=== PATIENT | male | born 1945 | race Caucasian/White ===

== ENCOUNTER → 2018-01-03 | Outpatient (CLI) | payer MEDICARE, OTHER ==
[~2018-01-03] MED LIST: ASPI-1471 PO; ASPI81TA94 PO; ATOR20TA22 PO; AZIT-1 PO; CEPH250C37 PO; DOCU-202 PO; FLU45SYR25 IM ONLY; FLU60SYR30 IM ONLY; FLU60VIA21 IM ONLY; HYDR-6045 RC; LAN30PT PO; LANS15CA32 PO; MULT-885 PO; PNEU0.5D3 IM; TADA5TAB7 PO; VALS160T20 PO; VALS160T22 PO; WARF5TAB23 PO
--- NOTE | 2018-01-03 11:21 | EKG ---
FACILITY: [facility] - [place] PATIENT NAME: ANAND MARCIAL : [id number] MR: [id number] V: [id number] EXAM DATE: ORDERING PHYSICIAN: ZAKI PAGE TECHNOLOGIST: ECTOR Test Reason : IRREGULAR HR Blood Pressure : / mmHG Vent. Rate : 095 BPM Atrial Rate : 208 BPM P-R Int : 000 ms QRS Dur : 098 ms QT Int : 352 ms P-R-T Axes : 000 -20 096 degrees QTc Int : 442 ms Atrial fibrillation with premature ventricular or aberrantly conducted complexes Low voltage QRS Abnormal ECG When compared with ECG of 11-APR-2013 15:08, Atrial fibrillation has replaced Sinus rhythm Nonspecific T wave abnormality now evident in Inferior leads Nonspecific T wave abnormality, worse in Lateral leads Referred By: KAYLEE Confirmed By:
== END ==
LOC: LAB 10:35
PROVIDERS: ATTEND Internal Medicine
DX: Z02.9 Encounter for administrative examinations, unspecified (principal)

== ENCOUNTER → 2018-01-06 | Outpatient (CLI) | payer MEDICARE, OTHER ==
--- NOTE | 2018-01-09 19:31 | RADIOLOGY IMAGING REPORT ---
FACILITY: [facility] - [place] PATIENT NAME: ANAND MARCIAL : [id number] MR: [id number] V: [id number] EXAM DATE: [id number] ORDERING PHYSICIAN: BOBY PAGE TECHNOLOGIST: Boby Santos EXAMINATION:TWO-DIMENSIONAL ECHOCARDIOGRAPH REASON:ATRIAL FIBRILLATION 2D Measurements (normal values in centimeters) LV endLV endRV endVent.LV PostAorticLeftPercent DiastolicSystolicDiastolicSeptumWallRootAtriumShortening (3.5-5.7)(0.9-2.6)(0.6-1.1)(0.6-1.1)(2.0-3.7)(1.9-4.0)(25-35%) [id number]% STROKE VOLUME: 58ml ESTIMATED EJECTION FRACTION: 53% PARASTERNAL LONG AXIS: The patient appears to be in atrial fibrillation. No thrombi are noted. The left atrial appendage is not seen. The aortic valve and mitral valve both appear to open normally. 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 It appears to be more along the anterior leaflet. There is a mild to moderate mitral insufficiency noted. The left atrium appears to be enlarged. PARASTERNAL SHORT AXIS: Again overall left ventricular function appears to be normal. No specific wall motion abnormalities are noted. The aortic valve is trileaflet in configuration and appears to open normally. Tricuspid insufficiency is also noted. APICAL FOUR AND TWO CHAMBER: Normal left ventricular ejection fraction. Both atrial appear to be enlarged. The aortic valve area was measured within normal range of 2.2cm2. The left atrial and right atrial volumes are severely increased 64ml/m2 for the left atrium and 39ml/m2 for the right atrium. The TAPSE measurement for the right ventricular function appears to be within normal ranges. Tricuspid regurgitation Vmax was measured at 2.46msec estimated right atrial pressure was 8mm Hg. No thrombi were noted in any of the chambers but the left atrial appendage was not seen. SUBCOSTAL VIEW: No pericardial effusion was noted. No atrioseptal or ventriculoseptal defects were appreciated. OVERALL IMPRESSION: 1. Normal left ventricular and right ventricular functions. 2. The patient is in atrial fibrillation no thrombi were noted but the left atrial appendage was not seen. 3. Mild asymmetric thickening of the left ventricle more along the posterior wall but no evidence for any outflow tract obstruction. 4. There is severe enlargement of the left atrium, moderate enlargement of the right atrium. Right ventricle and left ventricle appear to be normal in size. 5. A trileaflet aortic valve with no abnormalities noted. 6. A trace of pulmonic insufficiency. A mild amount of tricuspid insufficiency and a mild to moderate amount of mitral insufficiency present. 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 No mitral stenosis was noted. The estimated right ventricular systolic pressure was within normal ranges at 32mm Hg. Dictated by: Niles Prado M.D. on 01/08/2018 at 7:29 Transcribed by: NEIL on 01/09/2018 at 14:42 Approved by: Niles Prado M.D. on 01/09/2018 at 19:29 [facility]
== END ==
LOC: US 01:22
PROVIDERS: ATTEND Internal Medicine
DX: I48.91 Unspecified atrial fibrillation (principal); I51.7 Cardiomegaly; I37.1 Nonrheumatic pulmonary valve insufficiency; I34.1 Nonrheumatic mitral (valve) prolapse; I34.0 Nonrheumatic mitral (valve) insufficiency
CPT/HCPCS: 93306

== ENCOUNTER → 2018-03-24 | Outpatient (CLI) | payer MEDICARE, OTHER ==
[~2018-03-24] MED LIST changes: +NAPR220T86 PO; +WARF2.5T11 PO
== END ==
LOC: RESP 20:56
PROVIDERS: ATTEND Internal Medicine Clinical Cardiac Electrophysiology
DX: G47.33 Obstructive sleep apnea (adult) (pediatric) (principal); G47.36 Sleep related hypoventilation in conditions classified elsewhere

== ENCOUNTER → 2018-04-17 | Outpatient (CLI) | payer MEDICARE, OTHER ==
[2018-04-17 09:47] LABS: INR 2.62
== END ==
LOC: LAB 09:21
PROVIDERS: ATTEND Internal Medicine Clinical Cardiac Electrophysiology
DX: I48.1 Persistent atrial fibrillation (principal)
CPT/HCPCS: 36415; 85610

== ENCOUNTER → 2018-05-20 | Outpatient (CLI) | payer MEDICARE, OTHER ==
[2018-05-20 09:38] LABS: INR 1.66
== END ==
LOC: LAB 08:43
PROVIDERS: ATTEND Internal Medicine Clinical Cardiac Electrophysiology
DX: I48.1 Persistent atrial fibrillation (principal)
CPT/HCPCS: 36415; 85610

== ENCOUNTER → 2018-06-14 | Outpatient (CLI) | payer MEDICARE, OTHER ==
--- NOTE | 2018-06-14 14:43 | EKG ---
FACILITY: [facility] [place] PATIENT NAME: ANAND MARCIAL : [id number] MR: [id number] V: [id number] EXAM DATE: ORDERING PHYSICIAN: DWAYNE SR TECHNOLOGIST: FABIEN Test Reason : CK A FIB Blood Pressure : / mmHG Vent. Rate : 109 BPM Atrial Rate : 125 BPM P-R Int : 000 ms QRS Dur : 094 ms QT Int : 298 ms P-R-T Axes : 000 002 038 degrees QTc Int : 401 ms Atrial fibrillation with premature ventricular or aberrantly conducted complexes Nonspecific ST and T wave abnormality Abnormal ECG When compared with ECG of 03-JAN-2018 09:36, No significant change was found Confirmed by ALFREDO MARIO ([id number]) on 06/14/2018 4:07:08 PM Referred By: ORIN Confirmed By:ALFREDO MARIO
== END ==
LOC: RESP 14:10
PROVIDERS: ATTEND Internal Medicine Clinical Cardiac Electrophysiology
DX: R94.31 Abnormal electrocardiogram [ECG] [EKG] (principal)
CPT/HCPCS: 93005